=== PATIENT | male | born 1985 | race Caucasian/White ===

== ENCOUNTER 2016-06-18 19:52 | Emergency (ER) | payer OTHER, SELFPAY ==
--- NOTE | 2016-06-18 20:11 | ERPHSYRPT ---
- History of Present Illness Time Seen by Provider: 06/18/16 20:06 Source: patient Exam Limitations: no limitations Patient Subjective Stated Complaint: pt states hw thinks he broke his hand last week. states he was here in the er and left without being seen but hes been having increased pain and decided to come back in. Triage Nursing Assessment: pt alert and oriented, answers questions approp. pt ambulatory with steady gait noted. Physician History: pt states hw thinks he broke his hand last week. states he was here in the er and left without being seen but hes been having increased pain and decided to come back in. c/o pain on thenar side of palm on right hand Occurred: last week Method of Injury: direct blow Quality: constant Severity of Pain-Max: mild Severity of Pain-Current: mild Extremities Pain Location: hand: right, 4th finger: right Modifying Factors: Improves With: nothing Associated Symptoms: none Allergies/Adverse Reactions: No Known Drug Allergies Allergy (Verified 06/18/16 20:13) Home Medications: No Home Meds 1 ea MC UD 06/18/16 [History] Hx Tetanus, Diphtheria Vaccination/Date Given: Yes Hx Influenza Vaccination/Date Given: No Hx Pneumococcal Vaccination/Date Given: No Immunizations Up to Date: Yes - Review of Systems Constitutional: No Symptoms Eyes: No Symptoms Ears, Nose, & Throat: No Symptoms Respiratory: No Symptoms Cardiac: No Symptoms Abdominal/Gastrointestinal: No Symptoms Musculoskeletal: Deformity (right hand thenar eminence), Joint Swelling - Past Medical History Pertinent Past Medical History: No Neurological History: No Pertinent History ENT History: No Pertinent History Cardiac History: No Pertinent History Respiratory History: No Pertinent History Endocrine Medical History: No Pertinent History Musculoskeletal History: No Pertinent History GI Medical History: No Pertinent History History: No Pertinent History Psycho-Social History: Anxiety, Depression Male Reproductive Disorders: No Pertinent History Other Medical History: broken right hand 2016 - Past Surgical History Past Surgical History: Yes Neuro Surgical History: No Pertinent History Cardiac: No Pertinent History Respiratory: No Pertinent History Gastrointestinal: No Pertinent History Genitourinary: No Pertinent History Musculoskeletal: Orthopedic Surgery Male Surgical History: No Pertinent History Other Surgical History: left arm surg - Social History Smoking Status: Never smoker Exposure to second hand smoke: No Drug Use: none Patient Lives Alone: No Significant Family History: no pertinent family hx - Nursing Vital Signs Nursing Vital Signs: Initial Vital Signs Temperature 98.7 F Temperature Source Oral Pulse Rate 100 Respiratory Rate 16 Blood Pressure [] 125/73 Pain Intensity 10 - Physical Exam General Appearance: alert Eyes, Ears, Nose, Throat Exam: moist mucous membranes Neck Exam: non-tender, supple Cardiovascular/Respiratory Exam: chest non-tender, normal breath sounds, regular rate/rhythm, no respiratory distress Abdominal Exam: non-tender, No guarding Back Exam: normal inspection, No vertebral tenderness Shoulder Exam: normal inspection Elbow/Forearm Exam: normal inspection Hand Exam: asymmetry, bone tenderness, deformity, limited ROM, soft tissue tenderness Neuro/Tendon Exam: normal sensation, normal motor functions Mental Status Exam: alert, oriented x 3, cooperative Skin Exam: normal color, warm, dry SpO2: 95 Oxygen Delivery: Room Air Procedures - Splinting Location of Splint: Right, Hand Type of Splint: Orthoglass Short Arm Splint Splint Applied By: ED Nurse Pre-Proc Neuro Vasc Exam: normal Post-Proc Neuro Vasc Exam: neurovascular intact - Course Nursing assessment & vital signs reviewed: Yes - Radiology Exams Hand X-ray Interpretation: Reviewed by me (5th metacarpal fracture, ) Ordered Tests: Active Orders 24 hr Category Date Time Status HAND (MINIMUM 3 VIEWS) Stat Exams 06/18/16 20:03 Taken - Progress Progress: unchanged Counseled pt/family regarding: diagnosis, need for follow-up, rad results - Departure Time of Disposition: 20:25 Departure Disposition: Home Clinical Impression: Fracture of fifth metacarpal bone of right hand Qualifiers: Encounter type: initial encounter Fracture type: closed Metacarpal location: neck Fracture alignment: displaced Qualified Code(s): S62.336A - Displaced fracture of neck of fifth metacarpal bone, right hand, initial encounter for closed fracture Condition: Stable Critical Care Time: No Referrals: LEXUS GUTIÉRREZ [COURTESY STAFF] - FIORELLA MIN [NON-STAFF PHY W/O PRIVILEGES] - Additional Instructions: Please call one of the hand surgeon on tuesday and make an appointment. for further management. Prescriptions: Naproxen 375 mg [Naprosyn 375 mg] 375 mg PO Q8H #30 tablet
[2016-06-18 21:01] VITALS: BP 123/73; PULSE 102; O2SAT 96
--- NOTE | 2016-06-19 08:09 | XRAY ---
Indication: Fifth metacarpal pain. Unable to move fourth and fifth digits. Comparison: January 12, 2016. 3 views of the right hand demonstrates stable angulated fifth metacarpal shaft fracture with interval healing. No new/acute bony, articular, or soft tissue abnormalities.
== END 2016-06-18 21:00 | disposition home or self-care (01) ==
LOC: ED 19:52
DX: S62.336A Displaced fracture of neck of fifth metacarpal bone, right hand, initial encounter for closed fracture (principal)
CPT/HCPCS: 73130; 99283

== ENCOUNTER 2016-08-31 11:56 | Emergency (ER) | payer OTHER, SELFPAY ==
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
[2016-08-31] MEDS ORDERED: NORCO 5/325 MG ONE (16:36)
[2016-08-31] MEDS: NORCO 5/325 MG PO ONE ×2 (16:36→17:01)
[2016-08-31] MEDS ORDERED: ULTRAM 50 MG PO ONE ×2 (16:48→18:18)
[2016-08-31] MEDS ORDERED: ULTRAM 50 MG ONE (16:50)
[2016-08-31 18:24] VITALS: BP 138/98; PULSE 82; O2SAT 100
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
== END 2016-08-31 18:24 | disposition home or self-care (01) ==
LOC: ED 11:56
DX: M79.641 Pain in right hand (principal)
CPT/HCPCS: 73130; 99283; A9270-GY

== ENCOUNTER 2016-12-08 22:37 | Emergency (ER) | payer SELFPAY ==
[2016-12-08] MEDS ORDERED: CITROMA 296 ML PO ONE (22:50)
[2016-12-08] MEDS ORDERED: MILK OF MAGNESIA 30 ML PO ONE (22:50)
[2016-12-08] MEDS ORDERED: Dulcolax 10 MG SUPP PR ONE (22:50)
--- NOTE | 2016-12-08 22:52 | ERPHSYRPT ---
- History of Present Illness Time Seen by Provider: 12/08/16 22:44 Historian: patient Exam Limitations: no limitations Patient Subjective Stated Complaint: Pt C/O abd pain 7/10 which he relates to constipation x 2 weeks. Pt drank milk of magnesia without relief. Pt sts intermittent bleeding from rectum bright red when attempting to have a BM. Triage Nursing Assessment: Pt alert, oriented, answers all questions appropriately. Skin pink, warm, dry. Resps non-labored. Pt ambulatory from EMS cot to bed. Steady gait noted. Provided urine specimen at triage. Physician History: PT STATES HIS LAST BM WAS 2 WEEKS AGO. FOR THE PAST 2 DAYS PT HAS HAD MID ABDOMINAL PAIN WITH NAUSEA; DENIES FEVER, CHEST PAIN, VOMITING, SHORTNESS OF AIR , DYSURIA. Allergies/Adverse Reactions: No Known Drug Allergies Allergy (Verified 12/08/16 22:50) Home Medications: No Reportable Medications [No Reported Medications] 10/06/16 [History] Hx Tetanus, Diphtheria Vaccination/Date Given: Yes Hx Influenza Vaccination/Date Given: Yes Hx Pneumococcal Vaccination/Date Given: Yes Immunizations Up to Date: Yes - Review of Systems Constitutional: No Fever Respiratory: No Dyspnea Cardiac: No Chest Pain Abdominal/Gastrointestinal: Abdominal Pain, Nausea, Constipation, No Vomiting Skin: No Rash All Other Systems: Reviewed and Negative - Past Medical History Pertinent Past Medical History: No Neurological History: No Pertinent History ENT History: No Pertinent History Cardiac History: No Pertinent History Respiratory History: No Pertinent History Endocrine Medical History: No Pertinent History Musculoskeletal History: No Pertinent History GI Medical History: No Pertinent History History: No Pertinent History Psycho-Social History: Anxiety, Depression Male Reproductive Disorders: No Pertinent History Other Medical History: broken right hand 2016 - Past Surgical History Past Surgical History: Yes Neuro Surgical History: No Pertinent History Cardiac: No Pertinent History Respiratory: No Pertinent History Gastrointestinal: No Pertinent History Genitourinary: No Pertinent History Musculoskeletal: Orthopedic Surgery Male Surgical History: No Pertinent History Other Surgical History: left arm surg - Social History Smoking Status: Current every day smoker How long have you smoked: 4 years Exposure to second hand smoke: No Drug Use: none Patient Lives Alone: No Significant Family History: no pertinent family hx - Nursing Vital Signs Nursing Vital Signs: Initial Vital Signs Temperature 97.9 F 12/08/16 22:44 Pulse Rate 83 12/08/16 22:44 Respiratory Rate 16 12/08/16 22:44 Blood Pressure 137/84 12/08/16 22:44 O2 Sat by Pulse Oximetry 98 12/08/16 22:44 Pain Scale Pain Intensity 7 - Physical Exam General Appearance: no apparent distress, alert Eye Exam: PERRL/EOMI Ears, Nose, Throat Exam: TMs normal, pharynx normal, moist mucous membranes Neck Exam: normal inspection Respiratory Exam: lungs clear Cardiovascular Exam: normal heart sounds Gastrointestinal/Abdomen Exam: soft, normal bowel sounds, tenderness (MINIMAL PERIUMBILICAL TENDERNESS), No guarding Back Exam: normal range of motion Extremity Exam: normal inspection, No pedal edema Neurologic Exam: alert, cooperative Skin Exam: warm, dry SpO2 Interpretation: normal SpO2: 98 Oxygen Delivery: Room Air - Course Nursing assessment & vital signs reviewed: Yes Ordered Tests: Active Orders 24 hr Category Date Time Status AMYLASE Stat Lab 12/08/16 23:05 Completed CBC W DIFF Stat Lab 12/08/16 23:05 Completed CMP Stat Lab 12/08/16 23:05 Completed LIPASE Stat Lab 12/08/16 23:05 Completed MAG [MAGNESIUM] Stat Lab 12/08/16 23:05 Completed UA W/RFX UR CULTURE Stat Lab 12/08/16 22:53 Completed Medication Summary Discontinued Medications Generic Name Dose Route Start Last Admin Trade Name Freq PRN Reason Stop Dose Admin Bisacodyl 10 mg 12/08/16 22:50 12/08/16 23:06 Dulcolax 10 Mg Supp [place] 12/08/16 22:51 10 mg STAT ONE Administration Magnesium Citrate 300 ml 12/08/16 22:50 12/08/16 22:57 Citroma 296 Ml PO 12/08/16 22:51 296 ml STAT ONE Administration Magnesium Citrate Confirm 12/08/16 22:55 Citroma 296 Ml Administered 12/08/16 22:56 Dose 296 ml .ROUTE .STK-MED ONE Magnesium Hydroxide 30 ml 12/08/16 22:50 12/08/16 22:57 Milk Of Magnesia 30 Ml PO 12/08/16 22:51 30 ml STAT ONE Administration Magnesium Hydroxide Confirm 12/08/16 22:55 Milk Of Magnesia 30 Ml Administered 12/08/16 22:56 Dose 30 ml .ROUTE .STK-MED ONE Lab/Rad Data: Laboratory Result Diagrams 12/08/16 23:05 12/08/16 23:05 Laboratory Results 12/08/16 12/08/16 12/08/16 Range/Units 23:05 23:05 22:53 WBC 10.2 (4.0-10.5) K/mm3 RBC 4.75 (4.1-5.6) M/mm3 Hgb 15.2 (12.5-18.0) gm/dl Hct 44.5 (42-50) % MCV 93.7 (78-100) fl MCH 32.0 (26-32) pg MCHC 34.2 (32-36) g/dl RDW 13.2 (11.5-14.0) % Plt Count 212 (150-450) K/mm3 MPV 9.7 H (6-9.5) fl Gran % 68.8 H (36.0-66.0) % Lymphocytes % 23.9 L (24.0-44.0) % Monocytes % 5.6 (0.0-12.0) % Eosinophils % 1.2 (0.00-5.0) % Basophils % 0.5 (0.0-0.4) % Basophils # 0.05 (0-0.4) Sodium 146 H (136-145) mEq/L Potassium 4.5 (3.5-5.1) mEq/L Chloride 108 H (98-107) mEq/L Carbon Dioxide 33.6 H (21-32) mEq/L Anion Gap 9.3 (5-15) MEQ/L BUN 8 L (9-20) mg/dL Creatinine 0.92 (0.55-1.30) mg/dl Estimated GFR > 60 ML/MIN Glucose 98 (70-110) MG/DL Calcium 8.8 (8.5-10.1) mg/dL Magnesium 2.4 (1.8-2.4) mg/dL Total Bilirubin 0.30 (0.2-1.0) mg/dL AST 25 (15-37) U/L ALT 30 (12-78) U/L Alkaline Phosphatase 51 (46-116) U/L Serum Total Protein 6.4 (6.4-8.2) gm/dL Albumin 3.4 (3.4-5.0) g/dL Amylase 80 (25-115) U/L Lipase 313 (73-393) U/L Ur Collection Type CLEAN CATCH Urine Color YELLOW (YELLOW) Urine Appearance SLIGHTLY CLOUDY (CLEAR) Urine pH 8.5 (5-6) Ur Specific [place] 1.005 (1.005-1.025) Urine Protein NEGATIVE (Negative) Urine Ketones NEGATIVE (NEGATIVE) Urine Blood NEGATIVE (0-5) Kevin/ul Urine Nitrite NEGATIVE (NEGATIVE) Urine Bilirubin NEGATIVE (NEGATIVE) Urine Urobilinogen NORMAL (0-1) mg/dL Ur Leukocyte Esterase NEGATIVE (NEGATIVE) Urine Glucose NEGATIVE (NEGATIVE) mg/dL Specimen Received 12/08/16 5970 - Progress Progress Note: 12/08/16 23:56 PT HAD GOOD BM IN ER - FEELS BETTER NOW. - Departure Time of Disposition: 23:58 Departure Disposition: Home Clinical Impression: CONSTIPATION, ABDOMINAL PAIN Condition: Stable Critical Care Time: No Referrals: DOCTOR,NO FAMILY [Primary Care Provider] - Instructions: Constipation, Abdominal Pain-Adult Additional Instructions: FOLLOW UP WITH PRIVATE DOCTOR TOMORROW.
[2016-12-08] MEDS ORDERED: CITROMA 296 ML ONE (22:55)
[2016-12-08] MEDS ORDERED: MILK OF MAGNESIA 30 ML ONE (22:55)
[2016-12-08 23:00] LABS: Collection Type CLEAN CATCH; Glucose NEGATIVE (NEGATIVE); Leukocyte Esterase NEGATIVE (NEGATIVE)
[2016-12-08 23:01] LABS: ADD URINE CULTURE? NO (NO); Bilirubin NEGATIVE (NEGATIVE); Blood NEGATIVE Ery/ul (0-5); COMPLETE URINE MICROSCOPIC? NO
[2016-12-08 23:08] LABS: BASOPHIL % 0.5 % (0.0-0.4); Eosinophil % 1.2 % (0.00-5.0); Granulocytes % 68.8 % (36.0-66.0); Lymphocytes % 23.9 % (24.0-44.0); Mean Cell Volume 93.7 fl (78-100); Mean Platelet Volume 9.7 fl (6-9.5); Monocytes % 5.6 % (0.0-12.0); Platelet Count 212 K/mm3 (150-450); Red Blood Count 4.75 M/mm3 (4.1-5.6); Red Cell Distribution Width 13.2 % (11.5-14.0); White Blood Count 10.2 K/mm3 (4.0-10.5)
[2016-12-08 23:29] LABS: ALBUMIN 3.4 g/dL (3.4-5.0); ALKALINE PHOSPHATASE 51 U/L (46-116); ANION GAP 9.3 MEQ/L (5-15); BLOOD UREA NITROGEN 8 mg/dL (9-20); CHLORIDE 108 mEq/L (98-107); Carbon Dioxide 33.6 mEq/L (21-32); Glucose 98 MG/DL (70-110); LIPASE 313 U/L (73-393); MAGNESIUM 2.4 mg/dL (1.8-2.4); Potassium 4.5 mEq/L (3.5-5.1); SGOT/AST 25 U/L (15-37); SGPT/ALT 30 U/L (12-78); SODIUM 146 mEq/L (136-145); Total Protein 6.4 gm/dL (6.4-8.2)
[2016-12-09 00:09] VITALS: BP 123/83; PULSE 107; O2SAT 94
== END 2016-12-09 00:08 | disposition home or self-care (01) ==
LOC: ED 22:37
DX: K59.00 Constipation, unspecified (principal); R10.9 Unspecified abdominal pain
CPT/HCPCS: 36415; 80053; 81002; 82150; 83690; 83735; 85025; A9270-GY

== ENCOUNTER 2016-12-09 13:51 | Emergency (ER) | payer SELFPAY ==
[2016-12-09 14:01] VITALS: BP 134/77; O2SAT 98
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
[2016-12-09 15:30] VITALS: PULSE 72
== END 2016-12-09 15:29 | disposition home or self-care (01) ==
LOC: ED 13:51
DX: K59.00 Constipation, unspecified (principal); K56.41 Fecal impaction; K64.4 Residual hemorrhoidal skin tags
CPT/HCPCS: 99283

== ENCOUNTER 2016-12-25 15:35 | Emergency (ER) | payer MEDICAID, OTHER ==
--- NOTE | 2016-12-25 16:11 | ERPHSYRPT ---
- History of Present Illness Time Seen by Provider: 12/25/16 16:07 Historian: patient, EMS Exam Limitations: no limitations Patient Subjective Stated Complaint: Pt states "I was in here about a week and a half ago for constipation and they did laxative and enima and I am not doing either of those again. I am having lower rt abdominal pain." Triage Nursing Assessment: Pt alert and oriented X 3, skin pwd. Pt able to speak in full clear sentences. Pt not grimacing, resting calmly playing on his cell phone. Pt able to move without difficulty. Physician History: Pt states "I was in here about a week and a half ago for constipation and they did laxative and enema and I am not doing either of those again. I am having lower rt abdominal pain." 31-year-old male came to the emergency room with complaining of right lower quadrant abdominal pain. Patient has multiple hospital ER visits for same type of abdominal pain and has been diagnosed with constipation. Patient was in the emergency room one week ago and at that time. He was given laxative and any mild afterwards. he has some relief. Timing/Duration: today Quality: cramping Abdominal Pain Onset Location: RLQ Severity of Pain-Max: mild Severity of Pain-Current: none Modifying Factors: Improves With: nothing Associated Symptoms: denies symptoms Allergies/Adverse Reactions: No Known Drug Allergies Allergy (Verified 12/09/16 14:03) Hx Tetanus, Diphtheria Vaccination/Date Given: Yes Hx Influenza Vaccination/Date Given: No Hx Pneumococcal Vaccination/Date Given: No Immunizations Up to Date: Yes - Review of Systems Constitutional: No Symptoms Eyes: No Symptoms Abdominal/Gastrointestinal: Abdominal Pain, Constipation Genitourinary Symptoms: No Symptoms Musculoskeletal: No Symptoms - Past Medical History Pertinent Past Medical History: No Neurological History: No Pertinent History ENT History: No Pertinent History Cardiac History: No Pertinent History Respiratory History: No Pertinent History Endocrine Medical History: No Pertinent History Musculoskeletal History: No Pertinent History GI Medical History: No Pertinent History History: No Pertinent History Psycho-Social History: Anxiety, Depression Male Reproductive Disorders: No Pertinent History Other Medical History: broken right hand 2016 - Past Surgical History Past Surgical History: Yes Neuro Surgical History: No Pertinent History Cardiac: No Pertinent History Respiratory: No Pertinent History Gastrointestinal: No Pertinent History Genitourinary: No Pertinent History Musculoskeletal: Orthopedic Surgery Male Surgical History: No Pertinent History Other Surgical History: left arm surg - Social History Smoking Status: Never smoker How long have you smoked: 4 years Exposure to second hand smoke: Yes Alcohol Use: Socially Drug Use: none Patient Lives Alone: No Significant Family History: no pertinent family hx - Nursing Vital Signs Nursing Vital Signs: Initial Vital Signs Temperature 98.6 F 12/25/16 15:36 Pulse Rate 104 H 12/25/16 15:36 Respiratory Rate 16 12/25/16 15:36 Blood Pressure 116/65 12/25/16 15:36 O2 Sat by Pulse Oximetry 94 L 12/25/16 15:36 Pain Scale Pain Intensity 10 - Physical Exam General Appearance: no apparent distress Eye Exam: PERRL/EOMI Ears, Nose, Throat Exam: normal ENT inspection Neck Exam: normal inspection Respiratory Exam: normal breath sounds Cardiovascular Exam: regular rate/rhythm Gastrointestinal/Abdomen Exam: soft, normal bowel sounds SpO2: 94 Oxygen Delivery: Room Air - Course Nursing assessment & vital signs reviewed: Yes Ordered Tests: Medication Summary Generic Name Dose Route Start Last Admin Trade Name Fely PRN Reason Stop Dose Admin Docusate Sodium 100 mg 12/26/16 16:02 Colace 100 Mg PO 12/26/16 16:03 STAT ONE - Progress Progress: improved Counseled pt/family regarding: diagnosis, need for follow-up - Departure Time of Disposition: 16:10 Departure Disposition: Home Clinical Impression: Constipation Qualifiers: Constipation type: slow transit constipation Qualified Code(s): K59.01 - Slow transit constipation Condition: Good Critical Care Time: No Referrals: DOCTOR,NO FAMILY [Primary Care Provider] - Instructions: Constipation Additional Instructions: Please follow the instructions given to you. Please take your medication as prescribed if given. If symptoms recur or get worse, come back to the emergency room if you cannot reach your primary care physician, or call your primary care physician for an appointment. Again if your symptoms get worse, come back to the emergency room. Thanks for visiting emergency room, and let us take care of you. Prescriptions: Docusate Sodium 100 mg [Colace 100 MG] 100 mg PO BID #30
[2016-12-25 16:26] VITALS: BP 130/70; PULSE 80; O2SAT 98
[2016-12-26] MEDS ORDERED: Colace 100 MG PO ONE (16:02)
== END 2016-12-25 16:37 | disposition home or self-care (01) ==
LOC: ED 15:35
DX: K59.01 Slow transit constipation (principal); R10.31 Right lower quadrant pain
CPT/HCPCS: 99282; A9270-GY

== ENCOUNTER 2017-02-08 19:23 | Emergency (ER) | payer OTHER ==
[2017-02-08 19:35] VITALS: O2SAT 99
--- NOTE | 2017-02-08 20:19 | ERPHSYRPT ---
- History of Present Illness Time Seen by Provider: 02/08/17 20:06 Source: patient Patient Subjective Stated Complaint: tooth pain to left upper jaw x 2 days Triage Nursing Assessment: Left upper jaw tooth pain x 2 days, no known fevers Physician History: CC: left upper toothache Hx: 31 y/o patient with no local dentist. He has pain in left upper mouth. No fever. No other problems. Pain is severe. Severity: severe ENT Location: mouth, dental Allergies/Adverse Reactions: No Known Drug Allergies Allergy (Verified 12/09/16 14:03) Hx Tetanus, Diphtheria Vaccination/Date Given: No Hx Influenza Vaccination/Date Given: No Hx Pneumococcal Vaccination/Date Given: No Immunizations Up to Date: Yes - Review of Systems Constitutional: No Fever, No Chills Ears, Nose, & Throat: Mouth Pain, No Throat Pain Respiratory: No Dyspnea Abdominal/Gastrointestinal: No Nausea, No Vomiting Skin: No Rash Neurological: No Headache - Past Medical History Pertinent Past Medical History: No Neurological History: No Pertinent History ENT History: No Pertinent History Cardiac History: No Pertinent History Respiratory History: No Pertinent History Endocrine Medical History: No Pertinent History Musculoskeletal History: No Pertinent History GI Medical History: No Pertinent History History: No Pertinent History Psycho-Social History: Anxiety, Depression Male Reproductive Disorders: No Pertinent History Other Medical History: broken right hand 2016 - Past Surgical History Past Surgical History: Yes Neuro Surgical History: No Pertinent History Cardiac: No Pertinent History Respiratory: No Pertinent History Gastrointestinal: No Pertinent History Genitourinary: No Pertinent History Musculoskeletal: Orthopedic Surgery Male Surgical History: No Pertinent History Other Surgical History: left arm surg - Social History Smoking Status: Never smoker How long have you smoked: 4 years Exposure to second hand smoke: No Alcohol Use: Socially Drug Use: none Patient Lives Alone: No Significant Family History: no pertinent family hx - Nursing Vital Signs Nursing Vital Signs: Initial Vital Signs Temperature 98.5 F 02/08/17 19:29 Pulse Rate 104 H 02/08/17 19:29 Respiratory Rate 18 02/08/17 19:29 Blood Pressure 120/74 02/08/17 19:29 O2 Sat by Pulse Oximetry 99 02/08/17 19:29 Pain Scale Pain Intensity 10 - Physical Exam General Appearance: alert Eye Exam: bilateral eye: PERRL, EOMI Nasal Exam: normal inspection Throat Exam: normal Neck Exam: normal inspection, non-tender, supple Cardiovascular/Respiratory Exam: normal breath sounds, regular rate/rhythm Neurologic Exam: alert, oriented x 3, cooperative Skin Exam: warm, dry, other (no facial cellulitis), No rash SpO2 Interpretation: normal SpO2: 99 Oxygen Delivery: Room Air Comments: Multiple caries. Left 2,3 molar tender. No swelling. No trismus. - Course Nursing assessment & vital signs reviewed: Yes - Progress Progress Note: 02/08/17 20:16 Advised dental follow up. Rx amoxill, motrin, ultram. Counseled pt/family regarding: diagnosis, need for follow-up - Departure Time of Disposition: 20:16 Departure Disposition: Home Clinical Impression: Toothache Condition: Stable Critical Care Time: No Referrals: DOCTOR,NO FAMILY [Primary Care Provider] - Instructions: Tooth Decay Additional Instructions: Follow up with dentist as soon as possible. Rx amoxil. Rx motrin= ibuprofen. Rx ultram- no driving or operating machinery. Prescriptions: Ibuprofen 600 mg PO Q6H PRN PRN #24 tablet PRN Reason: Pain Tramadol HCl [Ultram] 1 tab PO Q6H PRN PRN #12 tablet PRN Reason: pain Amoxicillin [Amoxil] 1 cap PO TID #30 capsule
[2017-02-08 20:26] VITALS: BP 117/75; PULSE 77
== END 2017-02-08 20:29 | disposition home or self-care (01) ==
LOC: ED 19:23
DX: K08.89 Other specified disorders of teeth and supporting structures (principal)
CPT/HCPCS: 99281; 99283

== ENCOUNTER 2017-09-15 02:20 | Emergency (ER) | payer OTHER ==
[2017-09-15] MEDS ORDERED: Sodium Chloride 0.9% 1000 ML 1,000 ML IV STA (02:37)
[2017-09-15] MEDS ORDERED: TORAdol 30 mg Injection IV ONE (02:37)
[2017-09-15] MEDS ORDERED: Zofran 4 MG/2 ML VIAL IV ONE (02:37)
[2017-09-15] MEDS ORDERED: Pepcid 20 MG VIAL IV ONE ×2 (02:37→02:46)
[2017-09-15 02:42] VITALS: O2SAT 98
--- NOTE | 2017-09-15 02:42 | ERPHSYRPT ---
- History of Present Illness Time Seen by Provider: 09/15/17 02:30 Historian: patient Exam Limitations: no limitations Physician History: Pt states, he started c/o RUQ abdominal pain about one week ago, it radiates to his back, started vomiting few days ago, denies fever, chills, diarrhea, urinary complaints, or vomiting, passing blood. He denies former abdominal surgery, no chest pain, cough, SOB or wheezing. Timing/Duration: week(s) Activities at Onset: none Quality: cramping, sharpness Abdominal Pain Onset Location: RUQ Pain Radiation: back Severity of Pain-Max: severe Severity of Pain-Current: moderate Modifying Factors: Improves With: nothing Associated Symptoms: nausea, vomiting Previous symptoms: no prior history Allergies/Adverse Reactions: cephalexin [From Keflex] Allergy (Mild, Verified 09/15/17 02:43) Hx Tetanus, Diphtheria Vaccination/Date Given: No Hx Influenza Vaccination/Date Given: No Hx Pneumococcal Vaccination/Date Given: No - Review of Systems Constitutional: No Symptoms Abdominal/Gastrointestinal: Abdominal Pain, Nausea, Vomiting All Other Systems: Reviewed and Negative - Past Medical History Pertinent Past Medical History: No Neurological History: No Pertinent History ENT History: No Pertinent History Cardiac History: No Pertinent History Respiratory History: No Pertinent History Endocrine Medical History: No Pertinent History Musculoskeletal History: No Pertinent History GI Medical History: No Pertinent History History: No Pertinent History Psycho-Social History: Anxiety, Depression Male Reproductive Disorders: No Pertinent History Other Medical History: broken right hand 2016 - Past Surgical History Past Surgical History: Yes Neuro Surgical History: No Pertinent History Cardiac: No Pertinent History Respiratory: No Pertinent History Gastrointestinal: No Pertinent History Genitourinary: No Pertinent History Musculoskeletal: Orthopedic Surgery Male Surgical History: No Pertinent History Other Surgical History: left arm surg - Social History Smoking Status: Never smoker How long have you smoked: 4 years Exposure to second hand smoke: No Alcohol Use: Socially Drug Use: none Patient Lives Alone: No Significant Family History: no pertinent family hx - Nursing Vital Signs Nursing Vital Signs: Initial Vital Signs Temperature 97.8 F 09/15/17 02:33 Pulse Rate 80 09/15/17 02:33 Respiratory Rate 18 09/15/17 02:33 Blood Pressure 122/87 09/15/17 02:33 O2 Sat by Pulse Oximetry 98 09/15/17 02:33 Pain Scale Pain Intensity 8 - Physical Exam General Appearance: no apparent distress Eye Exam: eyes nml inspection Ears, Nose, Throat Exam: normal ENT inspection, moist mucous membranes Neck Exam: normal inspection, non-tender Respiratory Exam: normal breath sounds, lungs clear, airway intact Cardiovascular Exam: regular rate/rhythm, normal heart sounds, normal peripheral pulses, No murmur Gastrointestinal/Abdomen Exam: soft, normal bowel sounds, tenderness (RUQ, moderate), No distention, No mass, No guarding, No ecchymosis, No pulsatile mass , No rebound, No hernia, No organomegaly Back Exam: normal inspection, CVA tenderness (right flank) Neurologic Exam: alert, oriented x 3, normal mood/affect Skin Exam: normal color, warm, dry Lymphatic Exam: No adenopathy SpO2 Interpretation: normal Oxygen Delivery: Room Air - Course Nursing assessment & vital signs reviewed: Yes EKG Interpreted by Me: RATE (72/min), NORMAL AXIS, Non-specific ST Changes, Other (PaC-s) Ordered Tests: Active Orders 24 hr Category Date Time Status EKG-ER Only STAT Care 09/15/17 02:37 Active IV Insertion STAT Care 09/15/17 02:37 Active ABDOMEN AND PELVIS W CONTRAST [CT] Stat Exams 09/15/17 02:38 Taken CBC W DIFF Stat Lab 09/15/17 02:47 Completed CMP Stat Lab 09/15/17 02:47 Completed LIPASE Stat Lab 09/15/17 02:47 Completed Lactic Acid Stat Lab 09/15/17 02:45 Completed TROPONIN Q3H Lab 09/15/17 02:47 Completed TROPONIN Q3H Lab 09/15/17 05:45 Ordered TROPONIN Q3H Lab 09/15/17 08:45 Ordered TROPONIN Q3H Lab 09/15/17 11:45 Ordered TROPONIN Q3H Lab 09/15/17 14:45 Ordered UA W/RFX UR CULTURE Stat Lab 09/15/17 03:00 Completed Urine Triage Profile Stat Lab 09/15/17 03:00 Completed Medication Summary Discontinued Medications Generic Name Dose Route Start Last Admin Trade Name Freq PRN Reason Stop Dose Admin Famotidine 20 mg 09/15/17 02:37 09/15/17 02:48 Pepcid 20 Mg Vial IV 09/15/17 02:38 20 mg STAT ONE Administration Famotidine Confirm 09/15/17 02:46 Pepcid 20 Mg Vial Administered 09/15/17 02:47 Dose 20 mg IV .STK-MED ONE Sodium Chloride 1,000 mls @ 999 mls/hr 09/15/17 02:37 09/15/17 02:48 Sodium Chloride 0.9% 1000 Ml IV 09/15/17 03:37 999 mls/hr .Q1H1M STA Administration Sodium Chloride Confirm 09/15/17 02:46 Sodium Chloride 0.9% 1000 Ml Administered 09/15/17 02:47 Dose 1,000 mls @ ud .ROUTE .STK-MED ONE Ketorolac Tromethamine 30 mg 09/15/17 02:37 09/15/17 02:48 Toradol 30 Mg Injection IV 09/15/17 02:38 30 mg STAT ONE Administration Ketorolac Tromethamine Confirm 09/15/17 02:46 Toradol 30 Mg Injection Administered 09/15/17 02:47 Dose 30 mg .ROUTE .STK-MED ONE Ondansetron HCl 4 mg 09/15/17 02:37 09/15/17 02:49 Zofran 4 Mg/2 Ml Vial IV 09/15/17 02:38 4 mg STAT ONE Administration Ondansetron HCl Confirm 09/15/17 02:46 Zofran 4 Mg/2 Ml Vial Administered 09/15/17 02:47 Dose 4 mg .ROUTE .STK-MED ONE Lab/Rad Data: Laboratory Result Diagrams 09/15/17 02:47 09/15/17 02:47 Laboratory Results 09/15/17 09/15/17 09/15/17 Range/Units 03:00 03:00 02:47 WBC (4.0-10.5) K/mm3 RBC (4.1-5.6) M/mm3 Hgb (12.5-18.0) gm/dl Hct (42-50) % MCV (78-100) fl MCH (26-32) pg MCHC (32-36) g/dl RDW (11.5-14.0) % Plt Count (150-450) K/mm3 MPV (6-9.5) fl Gran % (36.0-66.0) % Eos # (Auto) (0-0.5) Absolute Lymphs (auto) (1.0-4.6) Absolute Monos (auto) (0.0-1.3) Lymphocytes % (24.0-44.0) % Monocytes % (0.0-12.0) % Eosinophils % (0.00-5.0) % Basophils % (0.0-0.4) % Absolute Granulocytes (1.4-6.9) Basophils # (0-0.4) Sodium (137-145) mmol/L Potassium (3.5-5.1) mmol/L Chloride (98-107) mmol/L Carbon Dioxide (22-30) mmol/L Anion Gap (5-15) MEQ/L BUN (9-20) mg/dL Creatinine (0.66-1.25) mg/dL Estimated GFR ML/MIN Glucose (74-106) mg/dL Lactic Acid (0.4-2.0) Calcium (8.4-10.2) mg/dL Total Bilirubin (0.2-1.3) mg/dL AST (17-59) U/L ALT (0-50) U/L Alkaline Phosphatase (38-126) U/L Troponin I < 0.012 (0.000-0.034) ng/mL Serum Total Protein (6.3-8.2) g/dL Albumin (3.5-5.0) g/dL Lipase (23-300) U/L Ur Collection Type CCMS Urine Color JR (YELLOW) Urine Appearance CLEAR (CLEAR) Urine pH 5.0 (5-6) Ur Specific [place] 1.030 (1.005-1.025) Urine Protein NEGATIVE (Negative) Urine Ketones NEGATIVE (NEGATIVE) Urine Blood NEGATIVE (0-5) Kevin/ul Urine Nitrite NEGATIVE (NEGATIVE) Urine Bilirubin NEGATIVE (NEGATIVE) Urine Urobilinogen NORMAL (0-1) mg/dL Ur Leukocyte Esterase NEGATIVE (NEGATIVE) Urine Culture Reflexed NO (NO) Urine Glucose NEGATIVE (NEGATIVE) mg/dL Urine Opiates Level NEGATIVE (NEGATIVE) Ur Methadone NEGATIVE (NEGATIVE) Urine Barbiturates NEGATIVE (NEGATIVE) Ur Phencyclidine (PCP) NEGATIVE (NEGATIVE) Urine Amphetamine POSITIVE (NEGATIVE) U Benzodiazepine Level NEGATIVE (NEGATIVE) Urine Cocaine NEGATIVE (NEGATIVE) Urine Marijuana (THC) NEGATIVE (NEGATIVE) Specimen Received 09-15-17 0304 09/15/17 09/15/17 09/15/17 Range/Units 02:47 02:47 02:45 WBC 8.3 (4.0-10.5) K/mm3 RBC 4.87 (4.1-5.6) M/mm3 Hgb 15.3 (12.5-18.0) gm/dl Hct 44.0 (42-50) % MCV 90.3 (78-100) fl MCH 31.4 (26-32) pg MCHC 34.8 (32-36) g/dl RDW 12.9 (11.5-14.0) % Plt Count 247 (150-450) K/mm3 MPV 9.5 (6-9.5) fl Gran % 49.6 (36.0-66.0) % Eos # (Auto) 0.24 (0-0.5) Absolute Lymphs (auto) 3.26 (1.0-4.6) Absolute Monos (auto) 0.66 (0.0-1.3) Lymphocytes % 39.1 (24.0-44.0) % Monocytes % 7.9 (0.0-12.0) % Eosinophils % 2.9 (0.00-5.0) % Basophils % 0.5 (0.0-0.4) % Absolute Granulocytes 4.13 (1.4-6.9) Basophils # 0.04 (0-0.4) Sodium 144 (137-145) mmol/L Potassium 3.9 (3.5-5.1) mmol/L Chloride 102 (98-107) mmol/L Carbon Dioxide 31 H (22-30) mmol/L Anion Gap 14.6 (5-15) MEQ/L BUN 16 (9-20) mg/dL Creatinine 1.00 (0.66-1.25) mg/dL Estimated GFR > 60.0 ML/MIN Glucose 110 H (74-106) mg/dL Lactic Acid 1.0 (0.4-2.0) Calcium 9.3 (8.4-10.2) mg/dL Total Bilirubin 0.50 (0.2-1.3) mg/dL AST 31 (17-59) U/L ALT 31 (0-50) U/L Alkaline Phosphatase 55 (38-126) U/L Troponin I (0.000-0.034) ng/mL Serum Total Protein 7.4 (6.3-8.2) g/dL Albumin 4.8 (3.5-5.0) g/dL Lipase 134 (23-300) U/L Ur Collection Type Urine Color (YELLOW) Urine Appearance (CLEAR) Urine pH (5-6) Ur Specific La[place] (1.005-1.025) Urine Protein (Negative) Urine Ketones (NEGATIVE) Urine Blood (0-5) Kevin/ul Urine Nitrite (NEGATIVE) Urine Bilirubin (NEGATIVE) Urine Urobilinogen (0-1) mg/dL Ur Leukocyte Esterase (NEGATIVE) Urine Culture Reflexed (NO) Urine Glucose (NEGATIVE) mg/dL Urine Opiates Level (NEGATIVE) Ur Methadone (NEGATIVE) Urine Barbiturates (NEGATIVE) Ur Phencyclidine (PCP) (NEGATIVE) Urine Amphetamine (NEGATIVE) U Benzodiazepine Level (NEGATIVE) Urine Cocaine (NEGATIVE) Urine Marijuana (THC) (NEGATIVE) Specimen Received - Progress Progress: improved Progress Note: 09/15/17 04:10 Improved, no severe pain, or distress, afebrile, comfortable, did not vomit. I explained CT and lab results, he was given 30 ml Milk of Magnesia, and dscharged with instructions to continue OTC Miralax, and follow up with his physician, return if severe pain, vomiting, fever> 102 F! Counseled pt/family regarding: lab results, diagnosis, need for follow-up, rad results - Departure Time of Disposition: 04:12 Departure Disposition: Home Clinical Impression: Constipation Qualifiers: Constipation type: other constipation type Qualified Code(s): K59.09 - Other constipation Condition: Stable Critical Care Time: No Referrals: BOB SANCHEZ MD [Primary Care Provider] - Instructions: Constipation, Adult (DC) Additional Instructions: Rest x 2-3 days, drink plenty of fluids, return if severe pain, vomiting, fever > 102 F! Prescriptions: Ondansetron ODT 4 MG [Zofran Odt 4 mg] 4 mg PO Q6H PRN PRN #10 tab.rapdis PRN Reason: Nausea/Vomiting
[2017-09-15] MEDS ORDERED: TORAdol 30 mg Injection ONE (02:46)
[2017-09-15] MEDS ORDERED: Sodium Chloride 0.9% 1000 ML 1,000 ML ONE (02:46)
[2017-09-15] MEDS ORDERED: Zofran 4 MG/2 ML VIAL ONE (02:46)
[2017-09-15 02:50] LABS: BASOPHIL % 0.5 % (0.0-0.4); Basophil (Absolute #) 0.04 (0-0.4); Eosinophil % 2.9 % (0.00-5.0); Eosinophil (Absolute #) 0.24 (0-0.5); Granulocyte Absolute (ANC) 4.13 (1.4-6.9); Granulocytes % 49.6 % (36.0-66.0); Hemoglobin 15.3 gm/dl (12.5-18.0); Lymphocyte (Absolute #) 3.26 (1.0-4.6); Lymphocytes % 39.1 % (24.0-44.0); Mean Cell Volume 90.3 fl (78-100); Mean Corpuscular Hemoglobin 31.4 pg (26-32); Mean Corpuscular Hgb Concent. 34.8 g/dl (32-36); Mean Platelet Volume 9.5 fl (6-9.5); Monocyte (Absolute #) 0.66 (0.0-1.3); Monocytes % 7.9 % (0.0-12.0); Platelet Count 247 K/mm3 (150-450); Red Blood Count 4.87 M/mm3 (4.1-5.6); Red Cell Distribution Width 12.9 % (11.5-14.0); White Blood Count 8.3 K/mm3 (4.0-10.5)
[2017-09-15 03:04] LABS: Appearance CLEAR (CLEAR); Glucose NEGATIVE (NEGATIVE); Ketones NEGATIVE (NEGATIVE); Leukocyte Esterase NEGATIVE (NEGATIVE); Nitrite NEGATIVE (NEGATIVE); Protein,Urine Dip NEGATIVE (Negative)
[2017-09-15 03:05] LABS: Bilirubin NEGATIVE (NEGATIVE); Blood NEGATIVE Ery/ul (0-5); Urobilinogen NORMAL mg/dL (0-1)
[2017-09-15 03:13] LABS: ALBUMIN 4.8 g/dL (3.5-5.0); ALKALINE PHOSPHATASE 55 U/L (38-126); ANION GAP 14.6 MEQ/L (5-15); BLOOD UREA NITROGEN 16 mg/dL (9-20); CHLORIDE 102 mmol/L (98-107); Calcium 9.3 mg/dL (8.4-10.2); Carbon Dioxide 31 mmol/L (22-30); Glucose 110 mg/dL (74-106); LIPASE 134 U/L (23-300); Potassium 3.9 mmol/L (3.5-5.1); SGOT/AST 31 U/L (17-59); SGPT/ALT 31 U/L (0-50); SODIUM 144 mmol/L (137-145); Total Protein 7.4 g/dL (6.3-8.2)
[2017-09-15 03:20] LABS: Amphetamine,Urine POSITIVE (NEGATIVE); Barbiturate,Urine NEGATIVE (NEGATIVE); Benzodiazepine,Urine NEGATIVE (NEGATIVE); Cocaine,Urine NEGATIVE (NEGATIVE); Methadone,Urine NEGATIVE (NEGATIVE); Opiate,Urine NEGATIVE (NEGATIVE); PCP,Urine NEGATIVE (NEGATIVE); THC,Urine NEGATIVE (NEGATIVE)
[2017-09-15] MEDS ORDERED: MILK OF MAGNESIA 30 ML PO ONE (04:10)
[2017-09-15] MEDS ORDERED: MILK OF MAGNESIA 30 ML ONE (04:13)
[2017-09-15 04:18] VITALS: BP 109/77; PULSE 86
--- NOTE | 2017-09-15 09:11 | XRAY ---
Indication: Right upper quadrant abdominal pain, nausea, and vomiting. Multiple contiguous axial images obtained through the abdomen and pelvis using 80 cc Isovue 370 contrast only. Comparison: None. Lung bases demonstrates mild bibasilar dependent atelectasis. No infiltrate or effusion. Heart is not enlarged. Stomach is moderately distended with food/fluid. Noncontrasted stomach and bowel loops appear nonobstructed. Normal appendix. No free fluid/air. There is marked diffuse scattered colonic fecal debris with moderate rectal impaction. Anatomic variant for horseshoe kidney. Remaining liver, gallbladder, pancreas, spleen, stomach, kidneys, ureters, bladder, and aorta appear unremarkable. No pathologic retroperitoneal lymphadenopathy. Osseous structures intact. Small fatty umbilical hernia. Impression: 1. Marked fecal stasis with rectal impaction. 2. Small fatty umbilical hernia. 3. Anatomic variant horseshoe kidney. Comment: Preliminary interpretation was made by [facility]. No critical discrepancy. CT DI 23.18
== END 2017-09-15 04:25 | disposition home or self-care (01) ==
LOC: ED 02:20
DX: K59.00 Constipation, unspecified (principal); R11.2 Nausea with vomiting, unspecified
CPT/HCPCS: 36415; 74177; 80053; 80307; 81002; 83605; 83690; 84484; 85025; 93005; 96360; 96374; 96375; 99284; J1885; J2405; A9270-GY

== ENCOUNTER 2017-09-19 16:39 | Emergency (ER) | payer OTHER ==
[2017-09-19] MEDS ORDERED: TORAdol 30 mg Injection IV ONE (16:58)
[2017-09-19] MEDS ORDERED: TORAdol 30 mg Injection ONE (17:01)
--- NOTE | 2017-09-19 17:01 | ERPHSYRPT ---
- History of Present Illness Time Seen by Provider: 09/19/17 16:59 Historian: patient Patient Subjective Stated Complaint: PT states "My stomach hurts and I have been having migraines really bad. I know I need a laxative and the only one I can take is miralax." Triage Nursing Assessment: Pt alert and oriented X 3, skin pwd. Pt ambulates with an upright steady gait, able to speak in clear full sentences. Pt playing on his phone in the [employer], has sunburnt skin, stated he has not eaten or drank much in awhile. Physician History: mild to mod rlq ache pain off and on w/o rad for one week, no fever, no NV, no injury, decreased stooling Allergies/Adverse Reactions: cephalexin [From Keflex] Allergy (Mild, Verified 09/15/17 02:43) Hx Tetanus, Diphtheria Vaccination/Date Given: Yes Hx Influenza Vaccination/Date Given: No Hx Pneumococcal Vaccination/Date Given: No Immunizations Up to Date: Yes - Review of Systems Constitutional: No Fever Eyes: No Eye Redness Ears, Nose, & Throat: No Nose Congestion Respiratory: No Dyspnea Cardiac: No Chest Pain Abdominal/Gastrointestinal: Abdominal Pain, No Vomiting Genitourinary Symptoms: No Dysuria Musculoskeletal: No Back Pain Skin: No Rash Neurological: No Dizziness - Past Medical History Pertinent Past Medical History: No Neurological History: No Pertinent History ENT History: No Pertinent History Cardiac History: No Pertinent History Respiratory History: No Pertinent History Endocrine Medical History: No Pertinent History Musculoskeletal History: No Pertinent History GI Medical History: No Pertinent History History: No Pertinent History Psycho-Social History: Anxiety, Depression Male Reproductive Disorders: No Pertinent History Other Medical History: broken right hand 2016 - Past Surgical History Past Surgical History: Yes Neuro Surgical History: No Pertinent History Cardiac: No Pertinent History Respiratory: No Pertinent History Gastrointestinal: No Pertinent History Genitourinary: No Pertinent History Musculoskeletal: Orthopedic Surgery Male Surgical History: No Pertinent History Other Surgical History: left arm surg - Social History Smoking Status: Current every day smoker How long have you smoked: 15 Exposure to second hand smoke: Yes Alcohol Use: Socially Drug Use: none Patient Lives Alone: Yes Significant Family History: no pertinent family hx - Nursing Vital Signs Nursing Vital Signs: Initial Vital Signs Temperature 99.1 F 09/19/17 16:46 Pulse Rate 102 H 09/19/17 16:46 Respiratory Rate 16 07/09/18 16:46 Blood Pressure 127/85 09/19/17 16:46 O2 Sat by Pulse Oximetry 96 09/19/17 16:46 Pain Scale Pain Intensity 8 - Physical Exam General Appearance: no apparent distress Eye Exam: PERRL/EOMI Ears, Nose, Throat Exam: moist mucous membranes Neck Exam: normal inspection Respiratory Exam: normal breath sounds Cardiovascular Exam: regular rate/rhythm Gastrointestinal/Abdomen Exam: tenderness, No rebound Back Exam: No CVA tenderness Extremity Exam: normal inspection Neurologic Exam: alert, oriented x 3, cooperative Skin Exam: warm, dry SpO2 Interpretation: normal SpO2: 96 Oxygen Delivery: Room Air - Course Nursing assessment & vital signs reviewed: Yes - CT Exams Abdomen/Pelvis CT Interpretation: Discussed w/radiologist, Other (+stool, no appendicitis) Ordered Tests: Active Orders 24 hr Category Date Time Status IV Insertion STAT Care 09/19/17 16:58 Active ABDOMEN AND PELVIS W/0 CONTRAS [CT] Stat Exams 09/19/17 17:31 Taken CBC W DIFF Stat Lab 09/19/17 16:58 Completed CMP Stat Lab 09/19/17 16:58 Completed CULTURE,URINE Stat Lab 09/19/17 17:14 Received LIPASE Stat Lab 09/19/17 16:58 Completed UA W/ MICROSCOPIC Stat Lab 09/19/17 17:14 Completed Medication Summary Discontinued Medications Generic Name Dose Route Start Last Admin Trade Name Freq PRN Reason Stop Dose Admin Ketorolac Tromethamine 30 mg 09/19/17 16:58 09/19/17 17:04 Toradol 30 Mg Injection IV 09/19/17 16:59 30 mg STAT ONE Administration Ketorolac Tromethamine Confirm 09/19/17 17:01 Toradol 30 Mg Injection Administered 09/19/17 17:02 Dose 30 mg .ROUTE .[employer]-MED ONE Lab/Rad Data: Laboratory Result Diagrams 09/19/17 16:58 09/19/17 16:58 Laboratory Results 09/19/17 09/19/17 09/19/17 Range/Units 17:14 16:58 16:58 WBC 8.6 (4.0-10.5) K/mm3 RBC 4.74 (4.1-5.6) M/mm3 Hgb 15.0 (12.5-18.0) gm/dl Hct 42.6 (42-50) % MCV 89.9 (78-100) fl MCH 31.6 (26-32) pg MCHC 35.2 (32-36) g/dl RDW 12.9 (11.5-14.0) % Plt Count 234 (150-450) K/mm3 MPV 9.9 H (6-9.5) fl Gran % 70.8 H (36.0-66.0) % Eos # (Auto) 0.12 (0-0.5) Absolute Lymphs (auto) 1.77 (1.0-4.6) Absolute Monos (auto) 0.61 (0.0-1.3) Lymphocytes % 20.5 L (24.0-44.0) % Monocytes % 7.1 (0.0-12.0) % Eosinophils % 1.4 (0.00-5.0) % Basophils % 0.2 (0.0-0.4) % Absolute Granulocytes 6.10 (1.4-6.9) Basophils # 0.02 (0-0.4) Sodium 143 (137-145) mmol/L Potassium 3.8 (3.5-5.1) mmol/L Chloride 105 (98-107) mmol/L Carbon Dioxide 28 (22-30) mmol/L Anion Gap 13.2 (5-15) MEQ/L BUN 11 (9-20) mg/dL Creatinine 0.89 (0.66-1.25) mg/dL Estimated GFR > 60.0 ML/MIN Glucose 102 (74-106) mg/dL Calcium 9.7 (8.4-10.2) mg/dL Total Bilirubin 0.50 (0.2-1.3) mg/dL AST 28 (17-59) U/L ALT 27 (0-50) U/L Alkaline Phosphatase 63 (38-126) U/L Serum Total Protein 7.3 (6.3-8.2) g/dL Albumin 4.4 (3.5-5.0) g/dL Lipase 92 (23-300) U/L Ur Collection Type VOID Urine Color BROWN (YELLOW) Urine Appearance HAZY (CLEAR) Urine pH 5.0 (5-6) Ur Specific [place] 1.030 (1.005-1.025) Urine Protein TRACE (Negative) Urine Ketones SMALL (NEGATIVE) Urine Blood 5-10 (0-5) Kevin/ul Urine Nitrite NEGATIVE (NEGATIVE) Urine Bilirubin NEGATIVE (NEGATIVE) Urine Urobilinogen 4 (0-1) mg/dL Ur Leukocyte Esterase NEGATIVE (NEGATIVE) Urine Microscopic RBC 2-5 (0-2) /HPF Urine Microscopic WBC 5-10 (0-5) /HPF Ur Epithelial Cells RARE (FEW) /HPF Calcium Oxalate Crystal 2-5 (NEGATIVE) /HPF Urine Bacteria MODERATE (NEGATIVE) /HPF Urine Mucus MODERATE (NEGATIVE) /HPF Urine Culture Reflexed YES (NO) Urine Glucose NEGATIVE (NEGATIVE) mg/dL Specimen Received 09/19/17 1715 - Progress Progress: improved Progress Note: 09/19/17 18:22 miralax, see your doctor, return if worse, oral fluids, differential d/w pt as early appendicitis Counseled pt/family regarding: lab results, diagnosis, need for follow-up, rad results - Departure Time of Disposition: 18:23 Departure Disposition: Home Clinical Impression: Constipation Qualifiers: Constipation type: unspecified constipation type Qualified Code(s): K59.00 - Constipation, unspecified Condition: Stable Critical Care Time: No Referrals: BOB SANCHEZ MD [Primary Care Provider] - Additional Instructions: miralax, oral fluids, colace Prescriptions: Docusate Sodium 100 mg [Colace 100 MG] 100 mg PO BID 5 Days #10 cap
[2017-09-19 17:22] LABS: BASOPHIL % 0.2 % (0.0-0.4); Basophil (Absolute #) 0.02 (0-0.4); Eosinophil % 1.4 % (0.00-5.0); Eosinophil (Absolute #) 0.12 (0-0.5); Granulocytes % 70.8 % (36.0-66.0); Hematocrit 42.6 % (42-50); Lymphocyte (Absolute #) 1.77 (1.0-4.6); Lymphocytes % 20.5 % (24.0-44.0); Mean Cell Volume 89.9 fl (78-100); Mean Corpuscular Hemoglobin 31.6 pg (26-32); Mean Corpuscular Hgb Concent. 35.2 g/dl (32-36); Mean Platelet Volume 9.9 fl (6-9.5); Monocyte (Absolute #) 0.61 (0.0-1.3); Monocytes % 7.1 % (0.0-12.0); Platelet Count 234 K/mm3 (150-450); Red Blood Count 4.74 M/mm3 (4.1-5.6); Red Cell Distribution Width 12.9 % (11.5-14.0); White Blood Count 8.6 K/mm3 (4.0-10.5)
[2017-09-19 17:39] LABS: ALBUMIN 4.4 g/dL (3.5-5.0); ALKALINE PHOSPHATASE 63 U/L (38-126); ANION GAP 13.2 MEQ/L (5-15); BLOOD UREA NITROGEN 11 mg/dL (9-20); CHLORIDE 105 mmol/L (98-107); Calcium 9.7 mg/dL (8.4-10.2); Carbon Dioxide 28 mmol/L (22-30); Creatinine 1 0.89 mg/dL (0.66-1.25); Glucose 102 mg/dL (74-106); LIPASE 92 U/L (23-300); Potassium 3.8 mmol/L (3.5-5.1); SGOT/AST 28 U/L (17-59); SGPT/ALT 27 U/L (0-50); SODIUM 143 mmol/L (137-145); Total Protein 7.3 g/dL (6.3-8.2)
[2017-09-19 17:41] LABS: Appearance HAZY (CLEAR); Bilirubin NEGATIVE (NEGATIVE); Glucose NEGATIVE (NEGATIVE); Ketones SMALL (NEGATIVE); Leukocyte Esterase NEGATIVE (NEGATIVE); Nitrite NEGATIVE (NEGATIVE); Protein,Urine Dip TRACE (Negative); Urobilinogen 4 mg/dL (0-1)
[2017-09-19 17:42] LABS: Bacteria MODERATE /HPF (NEGATIVE); Epithelial Cells RARE /HPF (FEW); Mucus MODERATE /HPF (NEGATIVE)
[2017-09-19 18:31] VITALS: BP 124/60; PULSE 80; O2SAT 99
--- NOTE | 2017-09-20 14:06 | XRAY ---
Exam: CT of the abdomen and pelvis without IV contrast from 09/19/2017. CTDI: 17.42 Comparison: CT of the abdomen and pelvis with IV contrast from 09/15/2017. Indication: Right lower quadrant abdominal pain, history of recent fecal impaction. Technique: Non-IV contrast axial images were obtained through the abdomen and pelvis. Reconstructed coronal and sagittal images were created and reviewed. Findings: The lung bases appear clear. The transverse heart size is within normal limits. The liver and spleen appear unremarkable. Evaluation of the solid organs is limited on a non-IV contrast study only. The gallbladder is mildly distended and reveals no dense calcifications within it. The pancreas and adrenal glands appear normal. 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 No renal calculi or hydronephrosis is seen. The abdominal aorta appears of normal diameter. No abnormal retroperitoneal lymphadenopathy is seen. A minimal fat-containing umbilical hernia is again seen. No free intraperitoneal air is identified. The appendix appears unremarkable within the right lower quadrant. I again note a large amount of scattered colonic stool throughout the entire colon, although the largest amount is seen within the distal rectosigmoid colon which measures up to 9.0 cm x 8.8 cm in cross section on axial image #84. There is also minimal diffuse concentric thickening of the wall of the rectum at this level representing no change. However, I see no pericolonic inflammatory changes adjacent to the stool filled colon. There is no free fluid within the lower pelvis. No enlarged pelvic lymph nodes are seen. The urinary bladder is mostly empty. A few small calcified phleboliths are seen within the lower pelvis. The bones reveal no acute fracture or aggressive bone lesion. There is some minimal anterior vertebral endplate spurring within the lower thoracic spine. Impression: 1. I again note a large amount of scattered stool throughout the entire colon consistent with significant constipation. The largest amount of stool seen within the distal rectosigmoid colon which appears significantly distended, as discussed above, suggesting rectal impaction. These findings appear essentially unchanged from 09/15/2017. Prior abundant fluid/secretions within the stomach lumen are no longer seen. 2. I again see a horseshoe kidney representing a normal anatomic variant. 3. Minimal fat-containing umbilical hernia representing no change. 4. No other acute process is seen within the abdomen or pelvis.
== END 2017-09-19 18:30 | disposition home or self-care (01) ==
LOC: ED 16:39
DX: K59.00 Constipation, unspecified (principal); F41.8 Other specified anxiety disorders; Z72.0 Tobacco use
CPT/HCPCS: 36000; 36415; 74176; 80053; 81000; 83690; 85025; 87086; 96374; 99284; J1885

== ENCOUNTER 2017-09-21 20:45 | Emergency (ER) | payer OTHER ==
[2017-09-21] MEDS ORDERED: Pepcid 20 MG VIAL IV ONE ×2 (21:33→21:36)
[2017-09-21] MEDS ORDERED: Sodium Chloride 0.9% 1000 ML 1,000 ML IV STA (21:33)
[2017-09-21] MEDS ORDERED: Sodium Chloride 0.9% 1000 ML 1,000 ML ONE (21:37)
[2017-09-21 21:53] LABS: Granulocyte Absolute (ANC) 5.63 (1.4-6.9); Hemoglobin 14.8 gm/dl (12.5-18.0); Mean Cell Volume 89.7 fl (78-100); Mean Corpuscular Hemoglobin 31.6 pg (26-32); Mean Corpuscular Hgb Concent. 35.2 g/dl (32-36); Mean Platelet Volume 9.4 fl (6-9.5); Platelet Count 235 K/mm3 (150-450); Red Blood Count 4.68 M/mm3 (4.1-5.6); Red Cell Distribution Width 12.7 % (11.5-14.0); White Blood Count 8.8 K/mm3 (4.0-10.5)
--- NOTE | 2017-09-21 21:53 | ERPHSYRPT ---
- History of Present Illness Time Seen by Provider: 09/21/17 21:00 Historian: patient Exam Limitations: no limitations Patient Subjective Stated Complaint: pt states that he was in the er last night for abd pain and was unable to go get his scripts today because he cant afford them states his pain is no different from last night Triage Nursing Assessment: pt alert and oriented, answers q uestions approp, pt ambulatory with steady gait ntoed, respirations nonlab ored with lungs cta. abd soft, nontender to light palpation. bowel sounds present x4 quads. Physician History: Pt has been c/o lower abdominal pain, distension for over a week. He was seen here 6 days ago, and [address] scan in both instances were negative, reveling constipation. He states, he had a small hard BM this morning, with a little bit of bleeding and pain, denies nausea, vomiting, diarrhea, fever, chills or urinary problems. He was given prescriptions for stool softener, but unable to fill it. Timing/Duration: week(s) (1) Activities at Onset: none Quality: dullness, fullness Abdominal Pain Onset Location: generalized abdomen Pain Radiation: no radiation Severity of Pain-Max: mild Severity of Pain-Current: mild Modifying Factors: Improves With: nothing Associated Symptoms: denies symptoms Previous symptoms: same symptoms as today Allergies/Adverse Reactions: cephalexin [From Keflex] Allergy (Mild, Verified 09/21/17 21:08) Hx Tetanus, Diphtheria Vaccination/Date Given: Yes Hx Influenza Vaccination/Date Given: No Hx Pneumococcal Vaccination/Date Given: No Immunizations Up to Date: Yes - Review of Systems Constitutional: No Symptoms Abdominal/Gastrointestinal: Abdominal Pain, Constipation All Other Systems: Reviewed and Negative - Past Medical History Pertinent Past Medical History: No Neurological History: No Pertinent History ENT History: No Pertinent History Cardiac History: No Pertinent History Respiratory History: No Pertinent History Endocrine Medical History: No Pertinent History Musculoskeletal History: No Pertinent History GI Medical History: No Pertinent History History: No Pertinent History Psycho-Social History: Anxiety, Depression Male Reproductive Disorders: No Pertinent History Other Medical History: broken right hand 2016 - Past Surgical History Past Surgical History: Yes Neuro Surgical History: No Pertinent History Cardiac: No Pertinent History Respiratory: No Pertinent History Gastrointestinal: No Pertinent History Genitourinary: No Pertinent History Musculoskeletal: Orthopedic Surgery Male Surgical History: No Pertinent History Other Surgical History: left arm surg - Social History Smoking Status: Current every day smoker How long have you smoked: 15 Exposure to second hand smoke: Yes Alcohol Use: Socially Drug Use: none Patient Lives Alone: Yes Significant Family History: no pertinent family hx - Nursing Vital Signs Nursing Vital Signs: Initial Vital Signs Temperature 98.9 F 09/21/17 20:55 Pulse Rate 69 09/21/17 20:55 Respiratory Rate 16 09/21/17 20:55 Blood Pressure 109/75 09/21/17 20:55 O2 Sat by Pulse Oximetry 99 09/21/17 20:55 Pain Scale Pain Intensity 5 - Physical Exam General Appearance: no apparent distress Eye Exam: eyes nml inspection Ears, Nose, Throat Exam: normal ENT inspection, moist mucous membranes Neck Exam: normal inspection, non-tender, supple Respiratory Exam: normal breath sounds, lungs clear, airway intact Cardiovascular Exam: regular rate/rhythm, normal heart sounds, normal peripheral pulses, No murmur Gastrointestinal/Abdomen Exam: soft, normal bowel sounds, tenderness (RLQ, mild) , No distention, No mass, No guarding, No ecchymosis, No pulsatile mass, No rebound, No hernia, No organomegaly Back Exam: normal inspection, No CVA tenderness Extremity Exam: normal inspection, No pedal edema Neurologic Exam: alert, oriented x 3, cooperative, normal mood/affect Skin Exam: normal color, warm, dry, No rash Lymphatic Exam: No adenopathy SpO2 Interpretation: normal SpO2: 99 Oxygen Delivery: Room Air - Course Nursing assessment & vital signs reviewed: Yes Ordered Tests: Active Orders 24 hr Category Date Time Status IV Insertion STAT Care 09/21/17 21:33 Active CBC W DIFF Stat Lab 09/21/17 21:51 Completed CMP Stat Lab 09/21/17 21:51 Completed LIPASE Stat Lab 09/21/17 21:51 Completed Manual Differential NC Stat Lab 09/21/17 21:51 Completed UA W/RFX UR CULTURE Stat Lab 09/21/17 22:23 Completed Urine Triage Profile Stat Lab 09/21/17 22:45 Completed Medication Summary Discontinued Medications Generic Name Dose Route Start Last Admin Trade Name Freq PRN Reason Stop Dose Admin Famotidine 20 mg 09/21/17 21:33 09/21/17 21:42 Pepcid 20 Mg Vial IV 09/21/17 21:34 20 mg STAT ONE Administration Famotidine Confirm 09/21/17 21:36 Pepcid 20 Mg Vial Administered 09/21/17 21:37 Dose 20 mg IV .STK-MED ONE Sodium Chloride 1,000 mls @ 999 mls/hr 09/21/17 21:33 09/21/17 21:42 Sodium Chloride 0.9% 1000 Ml IV 09/21/17 22:33 999 mls/hr .Q1H1M STA Administration Sodium Chloride Confirm 09/21/17 21:37 Sodium Chloride 0.9% 1000 Ml Administered 09/21/17 21:38 Dose 1,000 mls @ ud .ROUTE .STK-MED ONE Lab/Rad Data: Laboratory Result Diagrams 09/21/17 21:51 09/21/17 21:51 Laboratory Results 09/21/17 09/21/17 09/21/17 Range/Units 22:45 22:23 21:51 WBC (4.0-10.5) K/mm3 RBC (4.1-5.6) M/mm3 Hgb (12.5-18.0) gm/dl Hct (42-50) % MCV (78-100) fl MCH (26-32) pg MCHC (32-36) g/dl RDW (11.5-14.0) % Plt Count (150-450) K/mm3 MPV (6-9.5) fl Absolute Granulocytes (1.4-6.9) Sodium 142 (137-145) mmol/L Potassium 4.3 (3.5-5.1) mmol/L Chloride 102 (98-107) mmol/L Carbon Dioxide 28 (22-30) mmol/L Anion Gap 16.5 H (5-15) MEQ/L BUN 16 (9-20) mg/dL Creatinine 0.93 (0.66-1.25) mg/dL Estimated GFR > 60.0 ML/MIN Glucose 82 (74-106) mg/dL Calcium 9.5 (8.4-10.2) mg/dL Total Bilirubin 0.30 (0.2-1.3) mg/dL AST 23 (17-59) U/L ALT 23 (0-50) U/L Alkaline Phosphatase 57 (38-126) U/L Serum Total Protein 7.2 (6.3-8.2) g/dL Albumin 4.4 (3.5-5.0) g/dL Lipase 243 (23-300) U/L Ur Collection Type VOID Urine Color JR (YELLOW) Urine Appearance CLEAR (CLEAR) Urine pH 5.0 (5-6) Ur Specific [place] 1.030 (1.005-1.025) Urine Protein NEGATIVE (Negative) Urine Ketones NEGATIVE (NEGATIVE) Urine Blood NEGATIVE (0-5) Kevin/ul Urine Nitrite NEGATIVE (NEGATIVE) Urine Bilirubin NEGATIVE (NEGATIVE) Urine Urobilinogen NORMAL (0-1) mg/dL Ur Leukocyte Esterase NEGATIVE (NEGATIVE) Urine Culture Reflexed NO (NO) Urine Glucose NEGATIVE (NEGATIVE) mg/dL Urine Opiates Level NEGATIVE (NEGATIVE) Ur Methadone NEGATIVE (NEGATIVE) Urine Barbiturates NEGATIVE (NEGATIVE) Ur Phencyclidine (PCP) NEGATIVE (NEGATIVE) Urine Amphetamine NEGATIVE (NEGATIVE) U Benzodiazepine Level NEGATIVE (NEGATIVE) Urine Cocaine NEGATIVE (NEGATIVE) Urine Marijuana (THC) NEGATIVE (NEGATIVE) Specimen Received 09-2109/21/17 Range/Units 21:51 WBC 8.8 (4.0-10.5) K/mm3 RBC 4.68 (4.1-5.6) M/mm3 Hgb 14.8 (12.5-18.0) gm/dl Hct 42.0 (42-50) % MCV 89.7 (78-100) fl MCH 31.6 (26-32) pg MCHC 35.2 (32-36) g/dl RDW 12.7 (11.5-14.0) % Plt Count 235 (150-450) K/mm3 MPV 9.4 (6-9.5) fl Absolute Granulocytes 5.63 (1.4-6.9) Sodium (137-145) mmol/L Potassium (3.5-5.1) mmol/L Chloride (98-107) mmol/L Carbon Dioxide (22-30) mmol/L Anion Gap (5-15) MEQ/L BUN (9-20) mg/dL Creatinine (0.66-1.25) mg/dL Estimated GFR ML/MIN Glucose (74-106) mg/dL Calcium (8.4-10.2) mg/dL Total Bilirubin (0.2-1.3) mg/dL AST (17-59) U/L ALT (0-50) U/L Alkaline Phosphatase (38-126) U/L Serum Total Protein (6.3-8.2) g/dL Albumin (3.5-5.0) g/dL Lipase (23-300) U/L Ur Collection Type Urine Color (YELLOW) Urine Appearance (CLEAR) Urine pH (5-6) Ur Specific [place] (1.005-1.025) Urine Protein (Negative) Urine Ketones (NEGATIVE) Urine Blood (0-5) Kevin/ul Urine Nitrite (NEGATIVE) Urine Bilirubin (NEGATIVE) Urine Urobilinogen (0-1) mg/dL Ur Leukocyte Esterase (NEGATIVE) Urine Culture Reflexed (NO) Urine Glucose (NEGATIVE) mg/dL Urine Opiates Level (NEGATIVE) Ur Methadone (NEGATIVE) Urine Barbiturates (NEGATIVE) Ur Phencyclidine (PCP) (NEGATIVE) Urine Amphetamine (NEGATIVE) U Benzodiazepine Level (NEGATIVE) Urine Cocaine (NEGATIVE) Urine Marijuana (THC) (NEGATIVE) Specimen Received - Progress Progress: unchanged Progress Note: 09/21/17 23:19 I was planning to perform rectal exam on this patient, but he refused, also refused any further tests,imaging, he has been stable, he was on his phone, denies severe pain or distress, afebrile, alert and oriented x4, medically stable and mentally fully competent. He decided to leave [place] and follow up with his physician. Counseled pt/family regarding: lab results, diagnosis, need for follow-up - Departure Time of Disposition: 23:20 Departure Disposition: AMA Clinical Impression: Abdominal pain Qualifiers: Abdominal location: generalized Qualified Code(s): R10.84 - Generalized abdominal pain Constipation Qualifiers: Constipation type: unspecified constipation type Qualified Code(s): K59.00 - Constipation, unspecified Condition: Stable Critical Care Time: No Referrals: BOB SANCHEZ MD [Primary Care Provider] - Instructions: Acute Abdomen (Belly Pain), Adult (DC), Constipation in Adults, Constipation, Adult (DC), Hemorrhoids (DC) Additional Instructions: Follow up with your physician in 2-3 days, return if severe pain, vomiting, fever> 102 F or severe bleeding! Prescriptions: Hydrocortisone Acetate [Anusol-Hc] 25 mg RC AC #10 supp.rect
[2017-09-21 22:19] LABS: ALBUMIN 4.4 g/dL (3.5-5.0); ALKALINE PHOSPHATASE 57 U/L (38-126); ANION GAP 16.5 MEQ/L (5-15); BLOOD UREA NITROGEN 16 mg/dL (9-20); CHLORIDE 102 mmol/L (98-107); Calcium 9.5 mg/dL (8.4-10.2); Carbon Dioxide 28 mmol/L (22-30); Creatinine 1 0.93 mg/dL (0.66-1.25); Glucose 82 mg/dL (74-106); LIPASE 243 U/L (23-300); Potassium 4.3 mmol/L (3.5-5.1); SGOT/AST 23 U/L (17-59); SGPT/ALT 23 U/L (0-50); SODIUM 142 mmol/L (137-145); Total Protein 7.2 g/dL (6.3-8.2)
[2017-09-21 22:36] LABS: Appearance CLEAR (CLEAR)
[2017-09-21 22:37] VITALS: BP 126/74; PULSE 78
[2017-09-21 22:37] LABS: Bilirubin NEGATIVE (NEGATIVE); Blood NEGATIVE Ery/ul (0-5); Glucose NEGATIVE (NEGATIVE); Ketones NEGATIVE (NEGATIVE); Leukocyte Esterase NEGATIVE (NEGATIVE); Nitrite NEGATIVE (NEGATIVE); Protein,Urine Dip NEGATIVE (Negative); Urobilinogen NORMAL mg/dL (0-1)
[2017-09-21 22:52] LABS: Amphetamine,Urine NEGATIVE (NEGATIVE); Barbiturate,Urine NEGATIVE (NEGATIVE); Benzodiazepine,Urine NEGATIVE (NEGATIVE); Cocaine,Urine NEGATIVE (NEGATIVE); Methadone,Urine NEGATIVE (NEGATIVE); Opiate,Urine NEGATIVE (NEGATIVE); PCP,Urine NEGATIVE (NEGATIVE); THC,Urine NEGATIVE (NEGATIVE)
[2017-09-21 23:23] VITALS: O2SAT 99
== END 2017-09-21 23:15 | disposition left against medical advice (07) ==
LOC: ED 20:45
DX: R10.84 Generalized abdominal pain (principal); K59.00 Constipation, unspecified
CPT/HCPCS: 36000; 36415; 80053; 80307; 81002; 83690; 85025; 96360; 96374; 99284